=== PATIENT | female | born 1960 | race Hispanic/Latino ===

== ENCOUNTER → 2024-12-25 | Outpatient (CLI) | payer OTHER ==
[~2024-12-25] MED LIST: ASPI-556 PO; LISI20TA24 PO; METF-446 PO
--- NOTE | 2024-12-25 13:49 | HMCIMG ---
US ARTERIAL UNILA LOW EXT DUPL HISTORY: pain in left foot TECHNIQUE: Real-time arterial doppler ultrasound of the lower extremity was performed. Lower extremity arterial Doppler was performed. FINDINGS: LEFT: Normal biphasic waveforms seen in the evaluated arteries. Peak systolic velocities: MATTRESS FINISHER 113 cm/s. Proximal SFA 72 cm/s. Mid SFA 80cm/s Distal SFA 57 cm/s. Proximal popliteal cm/s. Distal popliteal 65 cm/s. ORACLE BPM CONSULTANT 81 cm/s. MEHRAN 69 cm/s. DPA 59 cm/s. IMPRESSION: No evidence of flow-limiting stenosis by velocity criteria.
== END | disposition home or self-care (01) ==
LOC: RAH 10:16
PROVIDERS: ATTEND Internal Medicine
DX: M79.672 Pain in left foot (principal)
CPT/HCPCS: 93926

== ENCOUNTER → 2025-01-27 | Outpatient (CLI) | payer OTHER ==
--- NOTE | 2025-01-28 06:47 | HMCIMG ---
EXAM: CT Cardiac calcium scoring. CLINICAL HISTORY: Screening. TECHNIQUE: Thin collimated axial CT cardiac images were obtained. A CT scan is done according to ALARA (As Low As Reasonably Achievable). CONTRAST: None. COMPARISON: None provided. FINDINGS: Calcium Score: VESSEL Number of lesions Volume mm3 Equi. Mass/mg Calcium score LM 1 37.7 - 67.0 LAD 3 79.1 - 117.1 LCX 2 7.8 - 9.2 RCA 2 12.8 - 20.6 Total 8 137.5 - 213.9 IMPRESSION: The total calcium score is 213.9. 89th percentile. /[place]
== END | disposition home or self-care (01) ==
LOC: RAH 13:32
PROVIDERS: ATTEND Internal Medicine Cardiovascular Disease
DX: Z13.6 Encounter for screening for cardiovascular disorders (principal)
CPT/HCPCS: 75571